=== PATIENT | female | born 1985 | race Caucasian/White ===

== ENCOUNTER 2019-01-21 08:57 | Day surgery (SDC) | payer BC, OTHER ==
[~2019-01-21] VITALS: Ht 152.4 cm; Wt 51.4 kg
[2019-01-21] VITALS (11 sets, daily range): BP systolic 111–128; BP diastolic 68–80; PULSE 64–88; RESP 16–22; Ht 152.4 cm; Wt 51.4 kg
--- NOTE | 2019-01-21 06:17 | PREOPHP ---
DATE OF ADMISSION: 01/21/2019 REASON FOR ADMISSION: The patient is coming tomorrow for a D and C. HISTORY OF PRESENT ILLNESS: This is a 32-year-old female, 6, para 3, abortions 2 with 3 ammon ng children. Last menstrual period was 09/29/2018. The patient has been referred by Dr. Quinton mcmahon to an ultrasound that shows demise at 14 weeks of her . The patient is referring s ome pain on her back since Saturday where she had the ultrasound done, and she has a history of 3 siena clarisa sections and low thyroid. She is not bleeding at this time. The fetus is demised. PAST MEDICAL HISTORY: Otherwise is unremarkable. FAMILY HISTORY: Unremarkable, noncontributory. MEDICATIONS: She is taking Synthroid 0.25 mg. ALLERGIES: SHE IS NOT ALLERGIC TO ANYTHING. SOCIAL HISTORY: She does not drink or smoke. No history of drugs. No history of any major medical antecedents. PHYSICAL EXAMINATION: VITAL SIGNS: Stable with a blood pressure of 110/8/70, temperature is 98.6. She weighs 112 and she is 5 feet. HEAD AND NECK: Normal. BREASTS: Soft, nontender, no masses. CHEST: Clear. HEART: Normal sinus rhythm. LUNGS: Clear. BREASTS: Soft, nontender, no masses. ABDOMEN: Soft, nontender, no masses, with the uterus about 14 weeks' size and no heart tones. EXTREMITIES: Normal. RECTAL: Negative. PLAN: With diagnosis of 14-week size , demise, history of second trimester screening with trisomy 18, the patient has been advised for a suction D and C. She has been advised of the pos sible risks and possible complications of the procedure with the alternatives and options. Written i nformation was provided. She had no more questions and agreed to go ahead with the procedure with fu ll understanding and no more questions. Dictated By: TERESA VALENTINE/NTS Conf#: [id number] DID#: [id number] CC: Dr. Alcantara;*EndCC*
[~2019-01-21 08:57] MED LIST: LEVO25TA6 PO
[2019-01-21] MEDS ORDERED: CEFAZOLIN 2 GM/50 ML (PMX) 50 ML IVPB SCH (10:00)
[2019-01-21] MEDS ORDERED: LACTATED RINGER'S 1,000 ML IV SCH (10:00)
[2019-01-21] MEDS ORDERED: METHYLERGONOVINE 0.2 MG INJ ONE (10:49)
--- NOTE | 2019-01-21 10:54 | PREAC ---
Date/Time of Note Date/Time of Note DATE: 01/21/19 TIME: 10:52 Anesthesia Eval and Record Evaluation Time Pre-Procedure Interview DATE: 01/21/19 TIME: 10:52 Age 33 Sex female NPO: 8 hrs Preoperative diagnosis 14 week demise Planned procedure D&C Past Medical History Past Medical History: Includes Endo: Hypothyroid Heme: Anemia Surgery & Anesthesia Issues No known issue Meds Anticoagulation: No Beta Naz within 24 hr: No Reason Beta Naz not given: Pt. not on B-Naz Reported Medications Levothyroxine Sodium* (Levothyroxine Sodium*) 25 Mcg Tablet, 25 MCG PO BEFORE BREAKFAST, #30 TAB 01/21/19 Current Medications Lactated Ringer's 1,000 ml @ 125 mls/hr Q8H IV Last administered on 01/21/19at 09:48; Admin Dose 125 MLS/HR; Start 01/21/19 at 10:00 Cefazolin Sodium/ Dextrose 50 ml @ 100 mls/hr PRE-OP IVPB ; Start 01/21/19 at 10:00; Stop 01/21/19 at 16:00 Meds reviewed: Yes Allergies Coded Allergies: egg (Verified Allergy, Unknown, 01/21/19) Allergies Reviewed: Yes Labs/Studies Labs Reviewed: Reviewed by anesthesiologist Result Diagram: 01/21/1930 01/21/19 0930 Laboratory Tests 01/21/19 09:30 Blood Bank Test 01/21/19 09:30 Antibody Screen NEGATIVE Blood Type A POSITIVE test: Positive Pre-procedure Exam Last vitals Vital Signs Date Temp Pulse Resp B/P (MAP) Pulse Ox O2 O2 Flow FiO2 Time Delivery Rate 01/21/19 97.8 80 16 123/76 100 Room Air 09:40 (92) Airway: Adequate mouth opening, Adequate thyromental dist Mallampati: Mallampati II Teeth: Normal Lung: Normal Heart: Normal ASA Physical Status ASA physical status: 2 Emergency: None Planned Anesthetic General/MAC: ETT Pre-operative Attestations Prior to commencing anesthesia and surgery, the patient was re-evaluated, there was verification of: *The patient's identity *The results of appropriate recent lab work and preoperative vital signs *The above evaluation not changing prior to induction *Anesthetic plan, risk benefits, alternative and complications discussed with patient/family; questions answered; patient/family understands, accepts and wishes to proceed. JESSICA BLACKMAN Jan 21, 2019 10:54
[2019-01-21] MEDS ORDERED: hydrALAzine 20 MG INJ IV PRN (11:00)
[2019-01-21] MEDS ORDERED: DEXAMETHASONE 4 MG/ML 5 ML INJ ONE (11:00)
[2019-01-21] MEDS ORDERED: ONDANSETRON 4 MG INJ IV PRN (11:00)
[2019-01-21] MEDS ORDERED: OXYCODONE/ACETAMINOPHEN (5/325) TAB PO PRN ×2 (11:00)
[2019-01-21] MEDS ORDERED: EPHEDrine 25 MG/5 ML SYG IV PRN (11:00)
[2019-01-21] MEDS ORDERED: ROCURONIUM 50 MG INJ ONE (11:00)
[2019-01-21] MEDS ORDERED: CEFAZOLIN 1 GM INJ ONE (11:00)
[2019-01-21] MEDS ORDERED: ALBUTEROL 0.083% (NEB) 2.5 MG/3 ML AMP HHN PRN (11:00)
[2019-01-21] MEDS ORDERED: ETOMIDATE 20 MG INJ ONE (11:00)
[2019-01-21] MEDS ORDERED: DIPHENHYDRAMINE 50 MG INJ IV PRN (11:00)
[2019-01-21] MEDS ORDERED: HYDROmorphONE 1 MG/5 ML IV SYRINGE IV PRN ×3 (11:00)
[2019-01-21] MEDS ORDERED: MEPERIDINE 25 MG INJ IV PRN (11:00)
[2019-01-21] MEDS ORDERED: FENTAnyl 50 MCG/ML VIAL ONE (11:00)
[2019-01-21] MEDS ORDERED: morphine 2 MG INJ IV PRN ×2 (11:00)
[2019-01-21] MEDS ORDERED: LABETALOL HCL 20MG INJ IV PRN (11:00)
[2019-01-21] MEDS ORDERED: FENTAnyl 50 MCG/ML VIAL IV PRN ×2 (11:00)
[2019-01-21] MEDS ORDERED: ONDANSETRON 4 MG INJ ONE (11:00)
[2019-01-21] MEDS ORDERED: FAMOTIDINE 20 MG INJ ONE (11:01)
[2019-01-21] MEDS ORDERED: OXYTOCIN 10 UNIT INJ ONE ×2 (11:50→11:53)
[2019-01-21] MEDS ORDERED: SILVER NITRATE SWAB ONE (11:57)
[2019-01-21] MEDS ORDERED: ACETAMINOPHEN 1000MG/100ML IV 100 ML IVPB ONE (12:00)
[2019-01-21] MEDS ORDERED: SILVER NITRATE SWAB TOP ONE (12:05)
--- NOTE | 2019-01-21 12:12 | PD.PPDC ---
DEMURRAGE MAN Discharge Instruction Condition [id number] Patient Condition: [id number] Good Diet [id number] Diet: Etrrb9x Resume Regular Diet Activity/Restrictions [id number] Activity: Lyrnm0f Normal Activity May Shower [id number] Restrictions: [id number] No Exercising No Lifting No Driving No Sexual Activity Nothing in the Vagina No [place] No Tampons, douche Follow-up Follow-up with Physician: 2, Week/Weeks Return to clinic for [id number] TRUCKER HAND Instructions: Ssofl2i Fever greater than 101 Chills Worsening abdominal pain Excessive Vaginal Bleeding More than 2 pads per hour Unable to tolerate diet TERESA RODAS MD Jan 21, 2019 12:12
--- NOTE | 2019-01-21 12:17 | SIPON ---
Date/Time of Note Date/Time of Note DATE: 01/21/19 TIME: 12:15 Operative Report Preoperative Diagnosis second trimester demise Postoperative Diagnosis Same Large multiple fibroid uterus Operation/Procedure Performed Second trimester suction D&C and evacuation of products of conception Surgeon see signature line billing assistant None Anesthesia: general Estimated blood loss: other Transfusion Required none Specimen products of conception Grafts/Implants none Complications none TERESA RODAS MD Jan 21, 2019 12:17
--- NOTE | 2019-01-21 12:24 | PAC ---
Date/Time of Note Date/Time of Note DATE: 01/21/19 TIME: 12:23 Post-Anesthesia Notes Post-Anesthesia Note Last documented vital signs Vital Signs Date Temp Pulse Resp B/P (MAP) Pulse Ox O2 O2 Flow FiO2 Time Delivery Rate 01/21/19 97.8 98 80 89 16 17 123/76 100 100 Room 09:40 121 (92) 128/ Air face 9 78 mask 6L Activity: WNL Respiratory function: WNL Cardiovascular function: WNL Mental status: Baseline Pain reasonably controlled: Yes Hydration appropriate: Yes Nausea/Vomiting absent: Yes JESSICA BLACKMAN Jan 21, 2019 12:24
[2019-01-21] MEDS ORDERED: MISOPROSTOL 200 MCG TAB PR ONE (12:30)
--- NOTE | 2019-01-21 12:47 | OPR ---
DATE OF OPERATION: 01/21/2019 PROCEDURE: Second trimester suction D and C, evacuation of products and products of conception . SURGEON: Teresa Lock MD MANAGER HELPDESK: None. GENERAL REPAIRER: Yanna Cleary ANESTHESIA: General anesthesia. PREOPERATIVE DIAGNOSIS: Second trimester demise. POSTOPERATIVE DIAGNOSIS: Second trimester demise plus large multiple fibroid uterus PROCEDURE: Second trimester suction D and C and evacuation of products of conception. BLOOD LOSS: Approximately 350 mL DESCRIPTION OF PROCEDURE: The patient was given general anesthesia, placed in the lithotomy position . The perineal and vaginal area were prepped and draped. Examination under anesthesia revealed that the uterus was very large with multiple fibroids and a demise. The vaginal speculum was appli ed. The cervix was held with a forceps and the dilatation of the cervix was done with Hegar dilators up to a #10 Hegar. A suction curet with a #10 curved suction curet was inserted inside the uterus a nd systematic suction of the anterior wall, posterior wall, lateral duval and fundus were done obtain ing tissue for histopathology. Ring forceps were applied as well, trying to get products of concepti on out. The patient tolerated the procedure well. At this time, the sharp curettage was also done t o assess the cavity that felt to be clean and empty. The procedure was finished by applying the suct ion curettage again to all the duval of the uterus posteriorly, laterally, anterior and fundus and ap plication of IV Pitocin, Methergine, and Cytotec were needed due to the patient's excessive bleeding, possibly due to fibroid uterus. The patient stopped bleeding and we massaged her uterus and we awak en the patient and the patient tolerated the procedure well and left the OR awake and stable. Dictated By: TERESA VALENTINE/LILIA Conf#: [id number] DID#: [id number]
== END 2019-01-21 13:44 | disposition home or self-care (01) ==
LOC: SDS 08:57
PROVIDERS: ATTEND Obstetrics & Gynecology
DX: O02.1 Missed abortion (principal); Z3A.14 14 weeks gestation of pregnancy; D64.9 Anemia, unspecified; E03.9 Hypothyroidism, unspecified; D25.9 Leiomyoma of uterus, unspecified
CPT/HCPCS: 59821; 71045; 80053; 81001; 85025; 85610; 85730; 86850; 86900; 86901; 88305; J0131; J0690; J1100; J2175; J2210; J2405; J2590; J3010; Z7512; Z7610